=== PATIENT | male | born 1985 | race Caucasian/White ===

== ENCOUNTER 2016-05-27 14:49 | Emergency (ER) | payer OTHER ==
[~2016-05-27] VITALS: Ht 175.3 cm; Wt 68.2 kg
[2016-05-27 15:08] VITALS: BP 118/73; PULSE 60; RESP 16; O2SAT 98
--- NOTE | 2016-05-27 15:40 | DRSVH ---
PROCEDURE: X-RAY CHEST, TWO VIEWS ([id number]) INDICATIONS: mid thorasic area pain TECHNIQUE: 2 views of the chest were acquired. COMPARISON: None. FINDINGS: Surgical changes and devices: None. Lungs and pleura: No pleural effusions or pneumothorax. Lungs are clear. Mediastinum: Mediastinal contours are normal. Heart size is normal. Bones and chest wall: No suspicious bony abnormalities. Soft tissues appear unremarkable. IMPRESSION: 1. No acute cardiopulmonary disease. Dictated by: Tayo Almonte M.D. on 05/27/2016 at 15:37 Approved by: Tayo Almonte M.D. on 05/27/2016 at 15:38
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
[2016-05-27] MEDS ORDERED: META800T16 PO (18:59)
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
[2016-05-27 19:31] VITALS: BP 113/77; PULSE 55; RESP 16; O2SAT 98
== END 2016-05-27 19:32 | disposition home or self-care (01) ==
LOC: SED 14:49
DX: S29.019A Strain of muscle and tendon of unspecified wall of thorax, initial encounter (principal); V43.52XA Car driver injured in collision with other type car in traffic accident, initial encounter; Y92.411 Interstate highway as the place of occurrence of the external cause; Y93.89 Activity, other specified; Y99.8 Other external cause status